=== PATIENT | male | born 1990 | race Caucasian/White ===

== ENCOUNTER 2017-03-24 15:10 | Emergency (ER) | payer OTHER ==
[2017-03-24 15:17] VITALS: TEMP 98.5; BMI 31.8
--- NOTE | 2017-03-24 16:10 | PDOC ---
History of Present Illness - General History Source: Patient Exam Limitations: No Limitations - History of Present Illness Initial Comments: 03/24/17 18:20 The patient is a 26 year old male with a significant PMH of HTN who presents to the emergency department with fatigue beginning approximately 2 hours ago. The patient notes reports he was cleaning a room in his house when he felt a wave of fatigue and had to sit down. He notes that upon getting up from the couch he fell onto the floor and struggled to get up. No pain, head injury, loc, neck pain, back pain. 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 The patient denies pain and has no other complaints. No associated chest pain, palpitations, fever/chills, headache, dizziness, vomiting, diaphoresis, leg swelling, back pain. Allergies: NKA Past surgical history: None reported. Social history: No reported toxic habits. PCP: None reported, moved from [place] 3 years ago. <Valentín Liao - Last Filed: 03/24/17 18:20> - General History Source: Patient Exam Limitations: No Limitations <Johnny Cadena - Last Filed: 03/24/17 20:02> - General Chief Complaint: Lightheaded Stated Complaint: CHEST PAIN, BLOOD PRESSURE PROBLEM Time Seen by Provider: 03/24/17 15:38 Past History <Valentín Liao - Last Filed: 03/24/17 18:20> - Past Medical History HTN: Yes - Suicide/Smoking/Psychosocial Hx Smoking History: Never smoked Information on smoking cessation initiated: No Hx Alcohol Use: No Drug/Substance Use Hx: No Substance Use Type: None <Johnny Cadena - Last Filed: 03/24/17 20:02> - Past Medical History Allergies/Adverse Reactions: Allergies Allergy/AdvReac Type Severity Reaction Status Date / Time No Known Allergies Allergy Verified 03/24/17 15:17 Review of Systems - Review of Systems Able to Perform ROS?: Yes Comments:: 03/24/17 18:20 Constitutional - (+) Fatigue. Pt denies Fever, Chills, weakness, HEENT: denies vision changes, sore throat Respiratory: Denies cough, sob, hemoptysis Cardiac: denies chest pain, palpitations, light headedness, leg swelling Abd/GI: denies abd pain, nausea, vomiting, blood per rectum, melena, diarrhea : denies dysuria, frequency, discharge Musculoskeletal - denies back pain, joint swelling skin - denies bruising, erythema, rash neurological: denies headache, numbness, focal weakness, tingling, ataxia hematologic: denies anemia, easy bruising, easy bleeding <Valentín Liao - Last Filed: 03/24/17 18:20> *Physical Exam - Vital Signs Last Vital Signs Temp Pulse Resp BP Pulse Ox 98.5 F 97 H 18 159/88 100 03/24/17 15:13 03/24/17 15:13 03/24/17 15:13 03/24/17 15:13 03/24/17 15:13 - Physical Exam Comments: 03/24/17 18:21 GENERAL: The patient is awake, alert, and fully oriented, Nontoxic - in no acute distress. HEAD: Normocephalic, atraumatic. EYES: extraocular movements intact, sclera anicteric, conjunctiva clear. ENT: Normal voice, Moist mucous membranes. NECK: Normal range of motion, supple without lymphadenopathy, JVD, or masses. LUNGS: Breath sounds equal, clear to auscultation bilaterally. No wheezes, no crackles, no rales. HEART: Regular rate and rhythm, normal S1 and S2 without murmur, rub or gallop. ABDOMEN: Soft, nontender, normoactive bowel sounds. No guarding, no rebound. No masses. EXTREMITIES: Normal range of motion, no edema. No clubbing or cyanosis. No cords, erythema, or tenderness. NEUROLOGICAL: No facial asymmetry, Normal speech, normal gait. PSYCH: Normal mood, normal affect. SKIN: Warm, Dry, normal turgor, no rashes or lesions noted. <Valentín Liao - Last Filed: 03/24/17 18:20> - Vital Signs Last Vital Signs Temp Pulse Resp BP Pulse Ox 98.5 F 97 H 18 159/88 100 03/24/17 15:13 03/24/17 15:13 03/24/17 15:13 03/24/17 15:13 03/24/17 15:13 <Johnny Cadena - Last Filed: 03/24/17 20:02> Heart Score/ECG Review - ECG Impressions Comment:: 03/24/17 16:08 Twelve-lead EKG was performed and reviewed by me. There is normal sinus rhythm with a normal rate. The axis is normal. The intervals are normal. There is normal R wave progression Nonspecific t wave abnormalities <Johnny Cadena - Last Filed: 03/24/17 20:02> ED Treatment Course - LABORATORY CBC & Chemistry Diagram: 03/24/17 16:20 03/24/17 16:20 - ADDITIONAL ORDERS Additional order review: Laboratory Results 03/24/17 16:20 Sodium 140 Potassium 3.8 Chloride 105 Carbon Dioxide 28 Anion Gap 7 L BUN 11 Creatinine 0.9 Creat Clearance w eGFR > 60 Random Glucose 85 Calcium 9.5 Total Bilirubin 0.5 AST 15 ALT 29 Alkaline Phosphatase 67 Total Protein 7.3 Albumin 4.2 03/24/17 16:20 RBC 4.79 MCV 87.9 MCHC 33.9 RDW 13.5 MPV 9.4 Neutrophils % 70.6 Lymphocytes % 20.4 Monocytes % 7.3 Eosinophils % 1.3 Basophils % 0.4 <Valentín Liao - Last Filed: 03/24/17 18:20> - LABORATORY CBC & Chemistry Diagram: 03/24/17 16:20 03/24/17 16:20 <Johnny Cadena - Last Filed: 03/24/17 20:02> Medical Decision Making - Medical Decision Making 03/24/17 16:07 26y hx of htn presents with generalized fatigue, denies any body aches, chest pain, sob, diaphoresis, vomiting, back pain, abd pain. on exam pt has a normal exam suspect possible fatigue from having an overnight shift with lack of sleep as he had a job interview will ck albs toscreen for anemia, metabolic dernagement consider renal failure pt denies any cp to me but had mentioned to triage - screning ekg w/o ischemic changes no risk for acs 03/24/17 18:58 labs reviewed and unremarkable pt feelnig much improved at dicharge will have pt get some erst and fu with his PMD return precautions were dsicussed I discussed the physical exam findings, ancillary test results and final diagnoses with the patient. I answered all of the patient's questions. The patient was satisfied with the care received and felt comfortable with the discharge plan and treatment plan. The patient will call their primary care physician within 24 hours to arrange follow-up and will return to the Emergency Department with any new, persistent or worsening symptoms. <Johnny Cadena - Last Filed: 03/24/17 20:02> *DC/Admit/Observation/Transfer - Attestations Scribe Attestion: 03/24/17 18:21 Documentation prepared by Valentín Liao, acting as medical support assistant for Johnny Cadena MD. <Valentín Liao - Last Filed: 03/24/17 18:20> - Discharge Dispostion Admit: No <Johnny Cadena - Last Filed: 03/24/17 20:02> Diagnosis at time of Disposition: Fatigue Qualifiers: Fatigue type: unspecified Qualified Code(s): R53.83 - Other fatigue Hypertension Qualifiers: Hypertension type: essential hypertension Qualified Code(s): I10 - Essential ( primary) hypertension - Discharge Dispostion Disposition: HOME Condition at time of disposition: Improved - Referrals Referrals: [facility] [place] [Provider Group] - Patient Instructions Printed Discharge Instructions: DI for Fatigue Additional Instructions: Return to the emergency department immediately with ANY new, persistent or worsening symptoms. Continue taking your mediciton for hypertension. You MUST call and follow up with your doctorin 2-3 days for further evaluation of your symptoms. Results were discussed with you. Please make sure your doctor reviews the results of your emergency evaluation. If you had any xrays during your visit, it was read preliminarily by myself, a Radiologist will review it and if there are any additional findings we will call you. Print Language: LAO - Post Discharge Activity Forms/Work/School Notes: Back to Work
[2017-03-24 17:05] LABS: BASOPHIL 0.4 % (0-2.0); EOSINOPHIL 1.3 % (0-4.5); MCH 29.8 pg (25.7-33.7); MCHC 33.9 g/dl (32.0-35.9); MEAN CELL VOLUME 87.9 fl (80-96); MEAN PLT VOLUME 9.4 fl (7.5-11.1); NEUTROPHILS 70.6 % (42.8-82.8); PLATELET COUNT 265 K/MM3 (134-434); RDW 13.5 % (11.9-15.9); WHITE BLOOD COUNT 8.6 K/mm3 (4.0-10.0)
[2017-03-24 17:35] LABS: ALBUMIN 4.2 g/dl (3.4-5.0); ANION GAP 7 (8-16); CALCIUM 9.5 mg/dL (8.5-10.1); CO2 28 mmol/L (21-32); GLUCOSE,RANDOM 85 mg/dL (74-106)
[2017-03-24 17:38] LABS: ALK PHOS 67 U/L (45-117); BILIRUBIN,TOTAL 0.5 mg/dL (0.2-1.0); CREATININE 0.9 mg/dL (0.7-1.3); SGOT/AST 15 U/L (15-37); SGPT/ALT 29 U/L (12-78); TOT PROT 7.3 g/dl (6.4-8.2)
[2017-03-24 18:41] VITALS: BP 168/88; PULSE 69
--- NOTE | 2017-03-25 13:03 | EKG ---
Test Reason : Blood Pressure : / mmHG Vent. Rate : 082 BPM Atrial Rate : 082 BPM P-R Int : 168 ms QRS Dur : 096 ms QT Int : 386 ms P-R-T Axes : 025 018 005 degrees QTc Int : 450 ms NORMAL SINUS RHYTHM NONSPECIFIC T WAVE ABNORMALITY ABNORMAL ECG NO PREVIOUS ECGS AVAILABLE Confirmed by IVETH TAYLOR MD ([id number]) on 03/25/2017 1:03:29 PM Referred By: Confirmed By:IVETH TAYLOR MD
== END 2017-03-24 18:42 | disposition home or self-care (01) ==
LOC: JER 15:10
DX: R53.83 Other fatigue (principal); I10 Essential (primary) hypertension
CPT/HCPCS: 36415; 80053; 85025; 93005; 93010; 99283-25